=== PATIENT | male | born 1995 | race Caucasian/White ===

== ENCOUNTER 2017-09-26 11:00 | Emergency (ER) | payer OTHER ==
[2017-09-26] MEDS: BACITRACIN OINT 30GM TOP (12:15)
== END 2017-09-26 12:28 | disposition home or self-care (01) ==
LOC: M ED 11:00
DX: L30.9 Dermatitis, unspecified (principal); S81.802A Unspecified open wound, left lower leg, initial encounter; X58.XXXA Exposure to other specified factors, initial encounter; Y92.89 Other specified places as the place of occurrence of the external cause; Z87.891 Personal history of nicotine dependence
CPT/HCPCS: 99282